=== PATIENT | female | born 1970 | race American Indian/Alaskan Native ===

== ENCOUNTER 2016-08-08 07:02 | Emergency (ER) | payer BC, OTHER ==
[2016-08-08 07:28] VITALS: BP 157/87
--- NOTE | 2016-08-08 08:00 | Emergency Department Report ---
ED Extremity Problem HPI - General Chief complaint: Extremity Injury, Lower Stated complaint: PAIN BILAT LEGS Time Seen by Provider: 08/08/16 07:36 Source: patient Mode of arrival: Ambulatory Limitations: No Limitations - History of Present Illness Initial comments: Patient here complaining of bilateral leg pain off and on for a few years. She says it's getting worse over the last few months. She said the right leg hurts worse than the left leg. Denies any redness or dislocated coloration. She is reporting some swelling. Denies any coughing, shortness of breath. Denies any personal history of blood clots or family history of blood clots. Denies being on hormone or any recent surgery. Denies any nausea or vomiting. Eyes any chest pain. Pain is 8 out of 10 to both her legs. He said she had some pain problems and she went to pain clinic up at [place] and he treated her but she still having pain. She denies any trauma and said that the doctor told her that she has arthritis. Patient is here and said that she is worried about having a blood clot. Denies any recent travel long distance. MD Complaint: extremity pain, extremity swelling Onset/Timin -: year(s) Location: left, bilateral lower extremity History of Same: Yes -: Yes arthralgia, No fever, No associated dyspnea, No associated chest pain Radiation: none Severity scale (0 -10): 8 Quality: aching Consistency: intermittent Improves with: immobilization, rest Worsens with: weight bearing, walking Associated Symptoms: arthralgias. denies: chest pain, shortness of breath, fever, myalgias, rash - Related Data Previous Rx's Medication Instructions Recorded Last Taken Type Ibuprofen [Motrin] 600 mg PO Q8H PRN #15 tablet 08/08/16 Unknown Rx Allergies Allergy/AdvReac Type Severity Reaction Status Date / Time No Known Allergies Allergy Verified 08/08/16 07:28 ED Review of Systems ROS: Stated complaint: PAIN BILAT LEGS Other details as noted in HPI Comment: All other systems reviewed and negative Constitutional: denies: chills, fever Respiratory: no symptoms reported Cardiovascular: denies: chest pain, palpitations, dyspnea on exertion, orthopnea , syncope, paroxysmal nocturnal dyspnea Gastrointestinal: denies: abdominal pain, nausea, vomiting Musculoskeletal: arthralgia. denies: joint swelling Skin: denies: rash Neurological: denies: headache, weakness, numbness, paresthesias ED Past Medical Hx - Past Medical History Previous Medical History?: No - Surgical History Past Surgical History?: No - Family History Family history: hypertension - Social History Smoking Status: Never Smoker Substance Use Type: None - Medications Home Medications: Home Medications Medication Instructions Recorded Confirmed Last Taken Type Ibuprofen [Motrin] 600 mg PO Q8H PRN #15 tablet 08/08/16 Unknown Rx ED Physical Exam - General Limitations: No Limitations General appearance: alert, in no apparent distress - Head Head exam: Present: atraumatic, normocephalic, normal inspection - Eye Eye exam: Present: normal appearance, PERRL, EOMI. Absent: periorbital swelling , periorbital tenderness Pupils: Present: normal accommodation - ENT ENT exam: Present: normal exam, normal orophraynx, mucous membranes dry, mucous membranes moist - Neck Neck exam: Present: normal inspection, full ROM. Absent: tenderness, meningismus, lymphadenopathy - Respiratory Respiratory exam: Present: normal lung sounds bilaterally. Absent: respiratory distress, wheezes, rales, rhonchi, stridor, chest wall tenderness, accessory muscle use, decreased breath sounds, prolonged expiratory - Cardiovascular Cardiovascular Exam: Present: normal rhythm, tachycardia, normal heart sounds - GI/Abdominal GI/Abdominal exam: Present: soft, normal bowel sounds. Absent: distended, tenderness, rebound, rigid - Extremities Exam Extremities exam: Present: normal inspection, full ROM, tenderness, normal capillary refill, calf tenderness (positve homans sign randy), other (no clubbing , cyanosis or edema to extremities. +2 pulses. No neurovascular compromise. No joint effusion or crepitus. Movement to extremitiesis normal and +5/5 strength in all extremities. No joint deformity noted. Several good color, movement, temperature and sensation to extremities.). Absent: pedal edema, joint swelling - Back Exam Back exam: Present: normal inspection, full ROM. Absent: tenderness, CVA tenderness (R), CVA tenderness (L), muscle spasm, paraspinal tenderness, vertebral tenderness, rash noted - Neurological Exam Neurological exam: Present: alert, oriented X3, normal gait, reflexes normal. Absent: motor sensory deficit - Psychiatric Psychiatric exam: Present: normal affect, normal mood - Skin Skin exam: Present: warm, dry, intact, normal color. Absent: rash ED Course Vital Signs 08/08/16 08/08/16 07:21 10:41 Temperature 98.9 F Pulse Rate 104 H 92 H Respiratory 18 Rate Blood Pressure 157/87 O2 Sat by Pulse 99 Oximetry Vital Signs 08/08/16 08/08/16 07:21 10:41 Temperature 98.9 F Pulse Rate 104 H 92 H Respiratory 18 Rate Blood Pressure 157/87 O2 Sat by Pulse 99 Oximetry - Reevaluation(s) Reevaluation #1: 08/08/16 10:42 Patient is stable and did not want any pain medication in emergency room she just that she wants to make sure she doesn't have a blood clot. ED Medical Decision Making - Radiology Data Radiology results: report reviewed Ultrasound bilateral lower extremity Doppler revealed no SVT or DVT - Medical Decision Making ED course: Patient here for bilateral extremity pain. This has been a chronic condition discharged been going on for a couple years she's been seen by her primary care Dr. Darion Lee and [facility] [place]. Patient is here requesting to have ultrasound of her legs. I discussed with her after ultrasound exam that I'll ultrasound showed that she had no clots in her veins to her lower extremities. Patient voiced understanding a discharge diagnosis and treatment plan. Discussed with her if she continues to have pain she is to continue to follow-up with orthopedic doctor but she should schedule an appointment on Thursday to follow up with her primary care doctor. Patient discharged home with prescription for Motrin and she is in stable condition. Critical care attestation.: If time is entered above; I have spent that time in minutes in the direct care of this critically ill patient, excluding procedure time. ED Disposition Clinical Impression: Arthralgia of both lower legs Disposition: DC-01 TO HOME OR SELFCARE Is pt being admited?: No Does the pt Need Aspirin: No Condition: Stable Instructions: Chronic Pain (ED), Arthralgia (ED) Additional Instructions: Please follow-up with orthopedic doctor if he I continue to have pain in year legs. Follow-up with the primary care doctor call to schedule an appointment on Thursday. Prescriptions: Ibuprofen [Motrin] 600 mg PO Q8H PRN #15 tablet PRN Reason: Pain Referrals: JARROD GARLAND MD [Primary Care Provider] - 08/11/16 RAUDEL VICTORIA MD [Staff Physician] - 3-5 Days Forms: Work/School Release Form(ED)
== END 2016-08-08 10:56 | disposition home or self-care (01) ==
LOC: ED 07:02
DX: M25.562 Pain in left knee (principal); M25.561 Pain in right knee
CPT/HCPCS: 93970

== ENCOUNTER 2016-12-22 07:18 | Outpatient (CLI) | payer BC ==
--- NOTE | 2016-12-22 14:32 | Magnetic Resonance Report ---
MRI LOWER EXTREMITY JOINT RIGHT WITHOUT CONTRAST HISTORY: Right knee pain. MULTISEQUENCE, multiplanar MRI without contrast. COMPARISON: None. FINDINGS: The ACL is intact but slightly abnormal on MRI. There is fluid signal within the ACL. I suspect a 8 x 8 x 4 mm ganglion cyst is within or adjacent to the ACL. The PCL, MCL, LCL complex and extensor complex are intact. Normal popliteus. The menisci are intact. Note significant degeneration or tear is identified. Intra-articular cartilage is within normal limits. No osteochondral defect is appreciated. The bone marrow signal is within normal limits. No fracture, bone marrow edema or bone lesion. 3 mm subchondral cyst is noted in the anterior medial femoral condyle. Trace joint effusion is identified. No popliteal cyst. IMPRESSION: An 8 x 8 x 4 mm ganglion cyst within the ACL is suspected as outlined above. Trace joint effusion.
== END 2016-12-22 07:19 | disposition home or self-care (01) ==
LOC: MRI 07:18
PROVIDERS: ATTEND Orthopaedic Surgery
DX: M25.861 Other specified joint disorders, right knee (principal); M25.461 Effusion, right knee
CPT/HCPCS: 73721

== ENCOUNTER 2018-08-18 22:29 | Emergency (ER) | payer BC ==
--- NOTE | 2018-08-18 23:55 | XRay Report ---
PROCEDURE: XR CHEST ROUTINE 2V TECHNIQUE: PA and lateral chest radiographs were obtained. HISTORY: cough COMPARISONS: July 16, 2016. FINDINGS: Heart: Normal. Mediastinum/Vessels: Normal. Lungs/Pleural space: Normal. Bony thorax: No acute osseous abnormality. IMPRESSION: Normal examination. This document is electronically signed by Slime Fu DO., August 18 2018 11:53:31 PM ET
[2018-08-19] MEDS ORDERED: ROBITUSSIN AC PO ONE (02:16)
[2018-08-19] MEDS ORDERED: SOLU-Medrol IV ONE (02:16)
[2018-08-19] MEDS ORDERED: NACL 0.9% 1000 ML 1,000 ML IV ONE (02:16)
[2018-08-19 02:33] LABS: Hemoglobin 13.1 gm/dl (10.1-14.3); Mean Corpuscular HGB Conc 34 % (30-34); Mean Corpuscular Volume 90 fl (79-97); Platelet Count 253 K/mm3 (140-440); Red Blood Count 4.33 M/mm3 (3.65-5.03); Red Cell Distribution Width 13.2 % (13.2-15.2)
[2018-08-19] MEDS ORDERED: TYLENOL PO ONE (02:43)
--- NOTE | 2018-08-19 02:46 | Emergency Department Report ---
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 The patient says that she has coughing fits that started making her chest hurt. She says that she feels very tight in the shoulders and neck. Patient denies any obvious fever but does say that she will occasionally have some chills. She has a past medical history of hypertension and says that she was diagnosed with bronchitis one year ago. She denies any tobacco or illicit drug use. No recent travel or sick contacts at home. However the patient was concerned as she had a patient recently was on airborne precautions. Her primary care physician is Dr. Darion Gavin. ED Past Medical Hx - Past Medical History Previous Medical History?: Yes Hx Hypertension: Yes - Surgical History Past Surgical History?: Yes - Social History Smoking Status: Never Smoker Substance Use Type: None - Medications Home Medications: Home Medications Medication Instructions Recorded Confirmed Last Taken Type ALBUTEROL Inhaler (OR & NICU) 2 puff IH QID PRN #1 inhalation 08/19/18 Unknown Rx [ProAir HFA Inhaler] Benzonatate [Tessalon Perles] 100 mg PO Q8HR PRN #20 capsule 08/19/18 Unknown Rx guaiFENesin/CODEINE [Robitussin AC] 5 ml PO Q6H PRN #100 ml 08/19/18 Unknown Rx predniSONE [Deltasone] 20 mg PO BID #6 tab 08/19/18 Unknown Rx ED Review of Systems ROS: Stated complaint: COUGHING Other details as noted in HPI Comment: All other systems reviewed and negative Constitutional: chills. denies: malaise Eyes: denies: eye pain, vision change ENT: denies: ear pain, throat pain Respiratory: cough. denies: shortness of breath Cardiovascular: chest pain (chest wall pain). denies: edema Gastrointestinal: denies: abdominal pain, vomiting Musculoskeletal: back pain, myalgia Skin: denies: rash, change in color Neurological: denies: headache, weakness Physical Exam - Physical Exam Vital Signs: Vital Signs 08/18/18 08/19/18 22:43 01:48 Temperature 99.7 F H 99.8 F H Pulse Rate 97 H 92 H Respiratory 20 18 Rate Blood Pressure 161/94 148/80 [Left] O2 Sat by Pulse 99 100 Oximetry Physical Exam: GENERAL: The patient is well-developed well-nourished. HENT: Normocephalic. Atraumatic. Patient has moist mucous membranes. Oropharynx is clear without tonsillar hypertrophy, erythema or exudates. EYES: Extraocular motions are intact. Pupils equal reactive to light bilaterally. NECK: Supple. Trachea is midline. CHEST/LUNGS: Mild to moderate expiratory wheezing. There is a productive sounding cough heard during examination. No tachypnea or accessory muscle use. There is no respiratory distress noted. HEART/CARDIOVASCULAR: Regular. There is no tachycardia. There is no murmur. ABDOMEN: Abdomen is soft, nontender. Patient has normal bowel sounds. There is no abdominal distention. SKIN: Skin is warm and dry. NEURO: The patient is awake, alert, and oriented. The patient is cooperative. The patient has no focal neurologic deficits. The patient has normal speech. MUSCULOSKELETAL: There is no tenderness or deformity. There is no evidence of acute injury. ED Course Vital Signs 08/18/18 08/19/18 22:43 01:48 Temperature 99.7 F H 99.8 F H Pulse Rate 97 H 92 H Respiratory 20 18 Rate Blood Pressure 161/94 148/80 [Left] O2 Sat by Pulse 99 100 Oximetry ED Medical Decision Making - Lab Data Result diagrams: 08/19/18 02:24 08/19/18 02:24 - EKG Data -: EKG Interpreted by Dc EKG shows normal: sinus rhythm, axis, intervals, QRS complexes, ST-T waves Rate: normal - EKG Data When compared to previous EKG there are: previous EKG unavailable Interpretation: normal EKG - Radiology Data Radiology results: image reviewed interpreted by me: Chest x-ray does not show any acute process. There are no pleural effusions, obvious pneumonia and there is no pneumothorax. - Medical Decision Making Patient with a history of a productive cough as well as some muscle/bodyaches. On examination she does have an expiratory wheeze and a productive bronchospastic cough. She does not appear to be in any respiratory distress. Chest x-ray was done that does not show any signs of pneumonia, pleural effusions, or any other acute process. The patient says that the coughing was causing her to have some chest discomfort when she coughs, so an EKG was done that is normal without any ST elevation NM, ischemia or dysrhythmia. Labs are unremarkable including CBC, metabolic panel and troponin. She was given some Robitussin-AC for cough, a dose of Solu-Medrol and a breathing treatment. Upon reevaluation she is feeling improved and the wheezing has decreased. Vital signs are stable throughout her ED course. She has good follow-up with Dr. Darion Gavin. She will be given a prescription for Robitussin-AC, Tessalon Perles, a 3 day course of steroids and an albuterol inhaler. She will return to the ER with any worsening of her symptoms or any acute distress. - Differential Diagnosis bronchospasm, pneumonia, viral URI, NM Critical Care Time: No Critical care attestation.: If time is entered above; I have spent that time in minutes in the direct care of this critically ill patient, excluding procedure time. ED Disposition Clinical Impression: Bronchitis Disposition: DC- TO HOME OR SELFCARE Is pt being admited?: No Condition: Stable Instructions: Acute Bronchitis (ED) Additional Instructions: Please follow up with your primary care physician in the next few days. Return to the emergency Department with any worsening of your symptoms or any acute distress. You have been prescribed a medication that is sedating and therefore should not be taken prior to driving, working, and responsible for children and in no way should be mixed with alcohol of any quantity. Prescriptions: predniSONE [Deltasone] 20 mg PO BID #6 tab ALBUTEROL Inhaler (OR & NICU) [ProAir HFA Inhaler] 2 puff IH QID PRN #1 inhalation PRN Reason: Shortness Of Breath guaiFENesin/CODEINE [Robitussin AC] 5 ml PO Q6H PRN #100 ml PRN Reason: Cough Benzonatate [Tessalon Perles] 100 mg PO Q8HR PRN #20 capsule PRN Reason: Cough Referrals: DARION GAVIN MD [Staff Physician] - 2-3 Days Time of Disposition: 04:37
[2018-08-19 02:57] LABS: BUN/Creatinine Ratio 16; Blood Urea Nitrogen 8 mg/dL (7-17); Calcium 9.3 mg/dL (8.4-10.2); Hemolysis Index 17
[2018-08-19 03:11] LABS: Basophils % (Manual) 0 % (0.0-1.8); Total Cells Counted 100
[2018-08-19 03:12] LABS: Anisocytosis 1+; Platelet Estimate Consistent w Auto
[2018-08-19] MEDS ORDERED: TORADOL IV ONE (03:25)
[2018-08-19] MEDS ORDERED: DUONEB *Not for PRN Use IH ONE (03:25)
[2018-08-19 04:24] VITALS: BP 129/75
== END 2018-08-19 04:50 | disposition home or self-care (01) ==
LOC: ED 22:29
DX: J40 Bronchitis, not specified as acute or chronic (principal); I10 Essential (primary) hypertension; M79.10 Myalgia, unspecified site; Z79.899 Other long term (current) drug therapy
CPT/HCPCS: 36415; 71046; 80048; 84484; 85007; 85025; 93005; 93010; 94640; 96374; 96375; 99284; J1885; J2930; J7030

== ENCOUNTER 2018-10-25 07:56 | Outpatient (CLI) | payer BC ==
--- NOTE | 2018-10-25 10:14 | Vascular Lab Report ---
DUPLEX DOPPLER LOWER EXTREMITY VEINS, BILATERAL INDICATION: I87.323 CHRONIC VENOUS HYPERTENSION(IDOPATHIS)WITH INFLAMMATION O. TECHNIQUE: Duplex doppler imaging was performed through the veins of both lower extremities using venous allegra mio and other maneuvers. Great and small saphenous veins were evaluated in the supine and upright po sitions. Valsalva technique was used to evaluate for venous insufficiency. COMPARISON: None available. FINDINGS: RIGHT LOWER EXTREMITY DVT (Y/N): No. LEFT LOWER EXTREMITY DVT (Y/N): No. RIGHT LOWER EXTREMITY (DEEP): Common femoral vein: 3.2 seconds Popliteal vein: 2.25 seconds RIGHT LOWER EXTREMITY (SUPERFICIAL): Great saphenous vein: 2.733 seconds - Prox: 29 mm - Mid: 27 mm - Dist: 20 mm Superficial saphenous vein: Not visualized. LEFT LOWER EXTREMITY (DEEP): Common femoral vein: 2.117 seconds Popliteal vein: 2.917 seconds LEFT LOWER EXTREMITY (SUPERFICIAL): No superficial venous reflux. Additional findings: No perforators noted in either lower extremity. IMPRESSION: 1. Venous reflux as outlined above. 2. Negative for DVT. Signer Name: Loy Gallagher MD Signed: 10/25/2018 10:10 AM Workstation Name: [id number]
== END 2018-10-25 07:57 | disposition home or self-care (01) ==
LOC: VAS 07:56
PROVIDERS: ATTEND Surgery Vascular Surgery
DX: I87.323 Chronic venous hypertension (idiopathic) with inflammation of bilateral lower extremity (principal); E66.9 Obesity, unspecified; I10 Essential (primary) hypertension
CPT/HCPCS: 93970

== ENCOUNTER 2018-12-10 00:16 | Emergency (ER) | payer BC, OTHER ==
[2018-12-10 00:25] VITALS: BP 146/75
[2018-12-10] MEDS ORDERED: IBUPROFEN 800 MG TAB PO ONE (00:56)
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
== END 2018-12-10 02:04 | disposition home or self-care (01) ==
LOC: ED 00:16
DX: S20.212A Contusion of left front wall of thorax, initial encounter (principal); I10 Essential (primary) hypertension; Z79.899 Other long term (current) drug therapy; W50.1XXA Accidental kick by another person, initial encounter; Y93.89 Activity, other specified; Y92.89 Other specified places as the place of occurrence of the external cause; Y99.8 Other external cause status
CPT/HCPCS: 71045; 93005; 93010; 99283